=== PATIENT | female | born 1975 | race American Indian/Alaskan Native ===

== ENCOUNTER 2021-03-06 13:29 | Emergency (ER) | payer SELFPAY ==
[2021-03-06] MEDS ORDERED: HYDROcodone/ACETAMINOPHEN 5-325 MG TAB PO ONE (14:06)
[2021-03-06] MEDS ORDERED: IBUPROFEN 800 MG TAB PO ONE (14:06)
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
[2021-03-06 14:30] VITALS: BP 121/71
--- NOTE | 2021-03-06 14:36 | XRay Report ---
CERVICAL SPINE 5 VIEWS INDICATION / CLINICAL INFORMATION: neck pain. COMPARISON: None available. FINDINGS: VERTEBRAE: No acute fracture. No significant malalignment. DISC SPACES / FACET JOINTS:No significant abnormality. PARASPINAL SOFT TISSUES:No significant abnormality. ADDITIONAL FINDINGS: None. Signer Name: Lencho Nunes DO Signed: 03/06/2021 2:32 PM Workstation Name: [id number]
== END 2021-03-06 15:03 | disposition home or self-care (01) ==
LOC: ED 13:29
DX: S16.1XXA Strain of muscle, fascia and tendon at neck level, initial encounter (principal); V49.49XA Driver injured in collision with other motor vehicles in traffic accident, initial encounter; Y93.89 Activity, other specified; Y92.89 Other specified places as the place of occurrence of the external cause; Y99.8 Other external cause status
CPT/HCPCS: 72040; 99283